=== PATIENT | male | born 1990 | race Caucasian/White ===

== ENCOUNTER 2023-01-12 17:09 | Emergency (ER) | payer SELFPAY ==
[2023-01-12] MEDS ORDERED: Bupivacaine 0.5% 10 ML SDV INJECT ONE (17:40)
[2023-01-12] MEDS ORDERED: Lidocaine 1% 10 ML MDV INJECT ONE (17:40)
== END 2023-01-12 19:02 | disposition home or self-care (01) ==
LOC: JD.ED 17:09
DX: S61.214A Laceration without foreign body of right ring finger without damage to nail, initial encounter (principal); F17.210 Nicotine dependence, cigarettes, uncomplicated; W20.8XXA Other cause of strike by thrown, projected or falling object, initial encounter
CPT/HCPCS: 12002; 73130; 99283; J3490